=== PATIENT | male | born 1970 | race Caucasian/White ===

== ENCOUNTER 2016-11-18 07:12 | Day surgery (SDC) | payer OTHER, BC ==
[2016-11-18] MEDS ORDERED: Lactated Ringers 1,000 ML IV SCH (08:00)
[2016-11-18] MEDS ORDERED: ceFAZolin 2 GM in Premix Bag 1 BAG IV ONE (08:30)
[2016-11-18] MEDS ORDERED: Dexamethasone 4 MG/ML 5 ML MDV IVPUSH ONE (09:00)
[2016-11-18] MEDS ORDERED: fentaNYL 100 MCG/2 ML SDV IV ONE (09:00)
[2016-11-18] MEDS ORDERED: Morphine 10 MG/ML Syringe IVPUSH ONE (09:00)
[2016-11-18] MEDS ORDERED: Ondansetron 4 MG/2 ML SDV IVPUSH ONE (09:00)
[2016-11-18] MEDS ORDERED: Midazolam 1 MG/ML 2 ML SDV IV ONE (09:00)
[2016-11-18] MEDS ORDERED: Lactated Ringers 1,000 ML IV ONE (09:00)
[2016-11-18] MEDS ORDERED: Propofol 200 MG/20 ML SDV IV ONE (09:00)
[2016-11-18] MEDS ORDERED: Ketorolac 30 MG/ML SDV IVPUSH ONE (09:00)
[2016-11-18] MEDS ORDERED: Lidocaine 2% 100 MG/5 ML Syringe IVPUSH ONE (09:00)
[2016-11-18] MEDS ORDERED: Bupivacaine 0.5% 30 ML SDV INJECT ONE (09:06)
[2016-11-18] MEDS ORDERED: Lidocaine 1% with EPINEPHrine 1:100,000 20 ML MDV INJECT ONE (09:06)
--- NOTE | 2016-11-18 09:41 | PCM.OPNOTE ---
- General Post-Op/Procedure Note Date of Surgery/Procedure: 11/18/16 Operative Procedure(s): lih repair with mesh Findings: direct hernia Pre Op Diagnosis: lih Post-Op Diagnosis: Same Anesthesia Technique: General LMA, Local (6m 1 % ldio with epi/0.5% buvipicaine) Primary Surgeon: Burt Terry Anesthesia Provider: Laila Zepeda Complications: None Condition: Good Free Text/Narrative:: see dictation
[2016-11-18] MEDS ORDERED: Acetaminophen/HYDROcodone 325-5 MG Tab PO ONE (10:38)
[2016-11-18 12:21] VITALS: BP 127/75
--- NOTE | 2016-11-18 17:21 | OR ---
DATE OF OPERATION: 11/18/2016 SURGEON: Burt Terry MD PROCEDURE PERFORMED: Left inguinal hernia repair. PREOPERATIVE DIAGNOSIS: Left inguinal hernia. POSTOPERATIVE DIAGNOSIS: Left inguinal hernia. INDICATIONS FOR PROCEDURE: This is a 46-year-old white male, who was referred with a history of what turned out to be a symptomatic left inguinal hernia. He was offered and accepted repair. There was a question of whether or not he has had a previous repair to this area as well. INTRAOPERATIVE FINDINGS: A direct inguinal hernia was encountered. There was no evidence of any surgical intervention in the inguinal canal. This was repaired with a Bard mesh preshaped keyhole, size 10 x 4.5 cm, lot #[id number] with an expiration date of 08/09/2021, reorder #[id number], and 6 mL of 1:1 mixture of 1% lidocaine with epinephrine 0.5% bupivacaine was used. DESCRIPTION OF OPERATION: After an excellent LMA anesthetic was administered, the patient was prepped and draped in usual sterile manner. The area of the planned incision was infiltrated with a 1:1 mixture of 1% lidocaine with epinephrine 0.5% bupivacaine. A 6 cm incision was then made with an intercept point on the inguinal ligament approximately alf between the anterosuperior iliac spine and the symphysis pubis. Underlying subcu fat was divided using electrocautery. Superficial inferior epigastric vessels were clamped, divided, and tied with 2-0 Vicryl ties. The aponeurosis of the external oblique was exposed. This was infiltrated with more local, a coleman was made in the aponeurosis and carried out through the external ring. The cord was mobilized, and skeletonized. We did not identify any hernia. Small cord lipoma was identified. The defect was noted in the floor of the inguinal canal. The mesh was placed on the floor of the inguinal canal, and the inferior edge was tacked inferiorly from the symphysis pubis to just lateral to the internal ring. The ring itself was closed with a running 2-0 Prolene as well. SorbaFix was then used to tack the mesh to the floor of the inguinal canal. The area was irrigated and the cord was returned to normal anatomic position. The aponeurosis of the external oblique was closed with a running 3-0 Vicryl. 3-0 Vicryl was used to reapproximate Luis's fascia and hao were used to close the skin. Needle, sponge, and instrument counts were reported as correct. The patient tolerated the procedure well and was taken to recovery room in good condition. /[id number] /MODL
== END 2016-11-18 12:03 | disposition home or self-care (01) ==
LOC: FB.SDS 07:12
PROVIDERS: ATTEND Surgery
DX: K40.91 Unilateral inguinal hernia, without obstruction or gangrene, recurrent (principal); K21.9 Gastro-esophageal reflux disease without esophagitis; F32.9 Major depressive disorder, single episode, unspecified; F41.1 Generalized anxiety disorder; E66.01 Morbid (severe) obesity due to excess calories; G47.33 Obstructive sleep apnea (adult) (pediatric); Z98.52 Vasectomy status; Z90.49 Acquired absence of other specified parts of digestive tract; Z79.899 Other long term (current) drug therapy; Z88.0 Allergy status to penicillin; Z88.2 Allergy status to sulfonamides; Z98.890 Other specified postprocedural states; Z87.891 Personal history of nicotine dependence
CPT/HCPCS: 49520; A9270; C1781; J0690; J1100; J1885; J2250; J2270; J2405; J2704; J3010; J7120

== ENCOUNTER 2017-05-12 20:45 | Emergency (ER) | payer BC, OTHER ==
--- NOTE | 2017-05-12 21:57 | EDM.PDOC ---
ED HPI GENERAL MEDICAL PROBLEM - General Chief Complaint: Chest Pain Stated Complaint: HEAVY CHEST Time Seen by Provider: 05/12/17 20:45 Source of Information: Reports: Patient, Family History Limitations: Reports: No Limitations - History of Present Illness INITIAL COMMENTS - FREE TEXT/NARRATIVE: 46 years old w m with a history of anxiety, came to the ed due to substernal chest pain, radiating to his left shoulder. No N/V/D dizziness or diaphoresis. Pt had an ESS 3 years agp which was found to be neg. Pt was seen by his PMD recently and went to the clinic today. The clinic sent him to the ED for chest pain evaluation. BP 117/68 pulse 69 Temp 97.7 Onset: Today, Sudden Onset Date: 05/11/17 Onset Time: 07:00 Duration: Hour(s):, Day(s): Location: Reports: Chest Quality: Reports: Burning Severity: Mild Improves with: Reports: Rest Worsens with: Reports: Movement Associated Symptoms: Reports: No Other Symptoms chest pain Pain Score (Numeric/FACES): 0 - Related Data Allergies Allergy/AdvReac Type Severity Reaction Status Date / Time Penicillins Allergy Unknown Hives Verified 05/12/17 21:39 Sulfa (Sulfonamide Allergy Unknown Swelling Verified 05/12/17 21:39 Antibiotics) Home Meds: Home Meds Calcium Carb & Citrate/Vit D3 [Calcium + D3 ER Tablet] 1 tab PO BID 05/01/14 [ History] Cholecalciferol (Vitamin D3) [Vitamin D3] 2,000 unit PO DAILY 05/01/14 [History] Citalopram Hydrobromide [Celexa] 40 mg PO DAILY 05/01/14 [History] Ferrous Gluconate 325 mg PO DAILY 05/01/14 [History] Ibuprofen 800 mg PO Q6HR PRN 05/01/14 [History] Magnesium 400 mg PO DAILY 05/01/14 [History] Multivitamin [Multi-Vitamin Daily] 1 tab PO BID 05/01/14 [History] [place]-3 Fatty Acids [[place]-3] 1,000 mg PO DAILY 05/01/14 [History] Omeprazole 20 mg PO DAILY 05/01/14 [History] Vit B12/Lmefolate Ca/Vit B6/B2 [Metafolbic Tablet] 1 each PO DAILY 05/01/14 [ History] buPROPion [Wellbutrin XL] 300 mg PO DAILY 05/01/14 [History] Acetaminophen [Tylenol Extra Strength] 1,000 mg PO ASDIRECTED PRN 10/25/14 [ History] Testosterone Cypionate 200 mg IM ASDIRECTED 10/25/14 [History] Amitriptyline [Elavil] 50 mg PO BEDTIME 11/06/16 [History] hydrOXYzine Pamoate [Vistaril] 25 mg PO QID PRN 11/06/16 [History] Past Medical History HEENT History: Reports: Cataract Other HEENT History: HX H/A WITH MIGRAINES Cardiovascular History: Reports: None Respiratory History: Reports: Sleep Apnea Gastrointestinal History: Reports: GERD Genitourinary History: Reports: None GL ACCOUNTANT History: Reports: None Neurological History: Reports: Headaches, Chronic, Migraines Psychiatric History: Reports: Anxiety, Depression, Panic Attack Endocrine/Metabolic History: Reports: Other (See Below) Other Endocrine/Metabolic History: THYROID DISORDER, SIMPLE GOITER Hematologic History: Reports: None Immunologic History: Reports: None Oncologic (Cancer) History: Reports: None Dermatologic History: Reports: None - Past Surgical History HEENT Surgical History: Reports: Oral Surgery, Tonsillectomy GI Surgical History: Reports: Appendectomy, Bariatric Procedure, Cholecystectomy , Hernia, Inguinal, Hernia Repair/Other Social & Family History - Family History Family Medical History: Noncontributory - Tobacco Use Smoking Status *Q: Former Smoker Years of Tobacco use: 5 Used Tobacco, but Quit: Yes Month Tobacco Last Used: - Caffeine Use Caffeine Use: Reports: Soda - Alcohol Use Days Per Week of Alcohol Use: 7 Number of Drinks Per Day: 2 Total Drinks Per Week: 14 - Recreational Drug Use Recreational Drug Use: No Drug Use in Last 12 Months: No - Living Situation & Occupation Living situation: Reports: Occupation: Employed ED ROS GENERAL - Review of Systems Review Of Systems: See Below Constitutional: Reports: No Symptoms HEENT: Reports: No Symptoms Respiratory: Reports: No Symptoms Cardiovascular: Reports: No Symptoms Endocrine: Reports: No Symptoms GI/Abdominal: Reports: No Symptoms : Reports: No Symptoms Musculoskeletal: Reports: No Symptoms Skin: Reports: No Symptoms Neurological: Reports: No Symptoms Psychiatric: Reports: Anxiety Hematologic/Lymphatic: Reports: No Symptoms Immunologic: Reports: No Symptoms ED EXAM, GENERAL - Physical Exam Exam: See Below Exam Limited By: No Limitations General Appearance: Alert, WD/WN, Anxious, Mild Distress Eye Exam: Bilateral Eye: Normal Inspection Ears: Normal External Exam Ear Exam: Bilateral Ear: Auricle Normal Nose: Normal Inspection Throat/Mouth: Normal Inspection Head: Atraumatic, Normocephalic Neck: Normal Inspection Respiratory/Chest: No Respiratory Distress Cardiovascular: Normal Peripheral Pulses GI/Abdominal: Normal Bowel Sounds (Male) Exam: Deferred Rectal (Males) Exam: Deferred Back Exam: Normal Inspection Extremities: Normal Inspection Neurological: Alert, Oriented, CN II-XII Intact, Normal Cognition, Normal Gait Psychiatric: Anxious Skin Exam: Warm, Dry, Intact, Normal Color, No Rash Lymphatic: No Adenopathy EKG INTERPRETATION EKG Date: 05/12/17 Time: 21:25 Rhythm: NSR Rate (Beats/Min): 68 [place]: Normal P-Wave: Present QRS: Normal ST-T: Normal QT: Normal Comparison: NA - No Prior EKG Course - Vital Signs Text/Narrative:: 46 years old w m with a history of anxiety, came to the ed due to substernal chest pain, radiating to his left shoulder. No N/V/D dizziness or diaphoresis. Pt had an ESS 3 years agp which was found to be neg. Pt was seen by his PMD recently and went to the clinic today. The clinic sent him to the ED for chest pain evaluation. BP 117/68 pulse 69 Temp 97.7 PE: Anxious person s/o gastric bypass surgery Labs: CBC, BMP, Troponin were all nl. UDS pos for tricyclycs and Benzos D Dimer <100 Imaging: Not indicated. Impression: Atypical chest pain. Anxiety Reexam: Pt's symptoms improved while here in the ed. No meds were give here in the ed. Plan: D/C with instructions Last Recorded V/S: Last Vital Signs Temp 36.5 C 05/12/17 20:45 Pulse 71 05/12/17 20:45 Resp 15 05/12/17 22:00 BP 127/73 05/12/17 22:00 Pulse Ox 96 05/12/17 22:00 - Orders/Labs/Meds Orders: Active Orders 24 hr Category Date Time Status EKG Documentation Completion [RC] ASDIRECTED Care 05/12/17 21:16 Active EKG 12 Lead [EK] Routine Ther 05/12/17 21:15 Ordered Labs: Laboratory Tests 05/12/17 05/12/17 05/12/17 Range/Units 21:25 21:25 21:25 WBC 9.1 (4.5-12.0) X10-3/uL RBC 4.58 (4.30-5.75) x10(6)uL Hgb 14.7 (11.5-15.5) g/dL Hct 42.4 (30.0-51.3) % MCV 92.7 (80-96) fL MCH 32.0 (27.7-33.6) pg MCHC 34.6 (32.2-35.4) g/dL RDW 13.0 (11.5-15.5) % Plt Count 216 (125-369) X10(3)uL MPV 7.7 (7.4-10.4) fL Neut % (Auto) 66.8 (46-82) % Lymph % (Auto) 23.5 (13-37) % [place] % (Auto) 7.4 (4-12) % Eos % (Auto) 2 (1.0-5.0) % Baso % (Auto) 0 (0-2) % Neut # (Auto) 6.1 (1.6-8.3) # Lymph # (Auto) 2.1 (0.6-5.0) # [place] # (Auto) 0.7 (0.0-1.3) # Eos # (Auto) 0.2 (0.0-0.8) # Baso # (Auto) 0.0 (0.0-0.2) # D-Dimer, Quantitative < 100 L (100-400) ng/mL Sodium 139 (135-145) mmol/L Potassium 3.6 (3.5-5.3) mmol/L Chloride 103 (100-110) mmol/L Carbon Dioxide 28 (23-29) mmol/L BUN 14 (5-20) mg/dL Creatinine 0.9 (0.6-1.3) mg/dL Est Cr Clr Drug Dosing TNP Estimated GFR (MDRD) > 60 (>60) BUN/Creatinine Ratio 15.6 (9-20) Glucose 102 (80-116) mg/dL Calcium 8.8 (8.6-10.2) mg/dL Troponin I (0.02-0.06) NG/ML Urine Opiates Screen (NEGATIVE) Ur Oxycodone Screen (NEGATIVE) Ur Propoxyphene Screen (NEGATIVE) Ur Barbituates Screen (NEGATIVE) Ur Tricyclics Screen (NEGATIVE) Ur Phencyclidine Scrn (NEGATIVE) Ur Amphetamine Screen (NEGATIVE) Urine MDMA Screen (NEGATIVE) U Benzodiazepines Scrn (NEGATIVE) U Cocaine Metab Screen (NEGATIVE) U Marijuana (THC) Screen (NEGATIVE) Ethyl Alcohol (<0.01) % 05/12/17 05/12/17 05/12/17 Range/Units 21:25 21:25 21:38 WBC (4.5-12.0) X10-3/uL RBC (4.30-5.75) x10(6)uL Hgb (11.5-15.5) g/dL Hct (30.0-51.3) % MCV (80-96) fL MCH (27.7-33.6) pg MCHC (32.2-35.4) g/dL RDW (11.5-15.5) % Plt Count (125-369) X10(3)uL MPV (7.4-10.4) fL Neut % (Auto) (46-82) % Lymph % (Auto) (13-37) % [place] % (Auto) (4-12) % Eos % (Auto) (1.0-5.0) % Baso % (Auto) (0-2) % Neut # (Auto) (1.6-8.3) # Lymph # (Auto) (0.6-5.0) # [place] # (Auto) (0.0-1.3) # Eos # (Auto) (0.0-0.8) # Baso # (Auto) (0.0-0.2) # D-Dimer, Quantitative (100-400) ng/mL Sodium (135-145) mmol/L Potassium (3.5-5.3) mmol/L Chloride (100-110) mmol/L Carbon Dioxide (23-29) mmol/L BUN (5-20) mg/dL Creatinine (0.6-1.3) mg/dL Est Cr Clr Drug Dosing Estimated GFR (MDRD) (>60) BUN/Creatinine Ratio (9-20) Glucose (80-116) mg/dL Calcium (8.6-10.2) mg/dL Troponin I < 0.01 L (0.02-0.06) NG/ML Urine Opiates Screen Negative (NEGATIVE) Ur Oxycodone Screen Negative (NEGATIVE) Ur Propoxyphene Screen Negative (NEGATIVE) Ur Barbituates Screen Negative (NEGATIVE) Ur Tricyclics Screen Positive H (NEGATIVE) Ur Phencyclidine Scrn Negative (NEGATIVE) Ur Amphetamine Screen Negative (NEGATIVE) Urine MDMA Screen Negative (NEGATIVE) U Benzodiazepines Scrn Positive H (NEGATIVE) U Cocaine Metab Screen Negative (NEGATIVE) U Marijuana (THC) Screen Negative (NEGATIVE) Ethyl Alcohol < 0.01 (<0.01) % Departure - Departure Time of Disposition: 22:20 Disposition: Home, Self-Care 01 Condition: Good Clinical Impression: Atypical chest pain Instructions: Nonspecific Chest Pain Referrals: Jayy Shepherd MD [Primary Care Provider] - Forms: ED Department Discharge Additional Instructions: Please f/u with your PMD, please come back if your symptoms get worse acutely - My Orders Last 24 Hours: My Active Orders 05/12/17 21:15 EKG 12 Lead [EK] Routine 05/12/17 21:16 EKG Documentation Completion [RC] ASDIRECTED - Assessment/Plan Last 24 Hours: My Active Orders 05/12/17 21:15 EKG 12 Lead [EK] Routine 05/12/17 21:16 EKG Documentation Completion [RC] ASDIRECTED
[2017-05-12 22:15] VITALS: BP 127/73
== END 2017-05-12 22:25 | disposition home or self-care (01) ==
LOC: FB.ED 20:45
DX: R07.2 Precordial pain (principal); F41.0 Panic disorder [episodic paroxysmal anxiety]; K21.9 Gastro-esophageal reflux disease without esophagitis; Z87.891 Personal history of nicotine dependence; Z79.899 Other long term (current) drug therapy; Z88.0 Allergy status to penicillin; Z88.2 Allergy status to sulfonamides
CPT/HCPCS: 36415; 80048; 80305; 84484; 85025; 85379; 93005; 99285; G0480; 99284

== ENCOUNTER 2020-07-12 15:21 | Emergency (ER) | payer OTHER ==
[2020-07-12] MEDS ORDERED: Ondansetron 4 MG Tab.DIS PO ONE (15:22)
--- NOTE | 2020-07-12 15:46 | EDM.PDOC ---
ED HPI GENERAL MEDICAL PROBLEM - General Chief Complaint: Head Injury Stated Complaint: HEAD INJURY Time Seen by Provider: 07/12/20 15:38 Source of Information: Reports: Patient History Limitations: Reports: No Limitations - History of Present Illness INITIAL COMMENTS - FREE TEXT/NARRATIVE: 49-year-old male who reports that he has not been feeling well since yesterday. He reports that he feels that it is due to stress that he is having because he is having marital problems and his has asked for a divorce. He reports he was quite anxious last night related to this and left his house to go to his office where he spent the night. He had nausea last night with vomiting 1 and been nauseated with vomiting 4. He reports that he was feeling nauseated and was going to the bathroom to throw up and felt very lightheaded and apparently felt weak and collapsed, falling and hitting his head on the edge of the toilet and states that he was unconscious for at least 30 minutes. He reports this happened about 2:30 PM today. He states that he has pain in his periorbital area and he rates that pain as a 9/10. It is a sharp and throbbing type pain. He continues to have nausea. He also reports he has posterior neck pain. He does feel weak and dizzy now. He denies any chest pain or shortness of breath. No diarrhea. No fevers. He denies any suicidal or homicidal ideation and he denies doing anything to harm himself today. He is brought to the emergency department by his son via private vehicle. Apparently he awoke on the floor and then called his son for assistance. The patient was at his office alone. There are no other associated signs or symptoms. There are no other modifying factors. Onset: Other (Yesterday as above. But the syncope and head injury happened today at 2:30 PM.) Duration: Constant Location: Reports: Head, Neck Quality: Reports: Sharp Severity: Severe Improves with: Reports: None Worsens with: Reports: Other (Palpation) Context: Reports: Trauma (And as above) Associated Symptoms: Reports: Headaches, Nausea/Vomiting, Syncope, Weakness Treatments ENGAGEMENT MANAGER: Reports: Other (see below) (Nothing.) Headache Pain Score (Numeric/FACES): 10 - Related Data Allergies Allergy/AdvReac Type Severity Reaction Status Date / Time Penicillins Allergy Unknown Hives Verified 05/12/17 21:39 Sulfa (Sulfonamide Allergy Unknown Swelling Verified 05/12/17 21:39 Antibiotics) Home Meds: Home Meds Calcium Carb, Citrate/Vit D3 [Calcium + D3 ER Tablet] 1 tab PO BID 05/01/14 [History] Cholecalciferol (Vitamin D3) [Vitamin D3] 2,000 unit PO DAILY 05/01/14 [History] Citalopram Hydrobromide [Celexa] 40 mg PO DAILY 05/01/14 [History] Ferrous Gluconate 325 mg PO DAILY 05/01/14 [History] Ibuprofen 800 mg PO Q6HR PRN 05/01/14 [History] Magnesium 400 mg PO DAILY 05/01/14 [History] Multivitamin [Multi-Vitamin Daily] 1 tab PO BID 05/01/14 [History] [place]-3 Fatty Acids [[place]-3] 1,000 mg PO DAILY 05/01/14 [History] Omeprazole 20 mg PO DAILY 05/01/14 [History] Vit B12/Levomefolate/Vit B6/B2 [Metafolbic Tablet] 1 each PO DAILY 05/01/14 [History] buPROPion [Wellbutrin XL] 300 mg PO DAILY 05/01/14 [History] Acetaminophen [Tylenol Extra Strength] 1,000 mg PO ASDIRECTED PRN 10/25/14 [History] Testosterone Cypionate 200 mg IM ASDIRECTED 10/25/14 [History] Amitriptyline [Elavil] 50 mg PO BEDTIME 11/06/16 [History] hydrOXYzine Pamoate [Vistaril] 25 mg PO QID PRN 11/06/16 [History] Past Medical History HEENT History: Reports: Cataract Other HEENT History: HX H/A WITH MIGRAINES Respiratory History: Reports: Sleep Apnea Gastrointestinal History: Reports: GERD Neurological History: Reports: Headaches, Chronic, Migraines Psychiatric History: Reports: Anxiety, Depression, Panic Attack Endocrine/Metabolic History: Reports: Other (See Below) Other Endocrine/Metabolic History: THYROID DISORDER, SIMPLE GOITER - Past Surgical History HEENT Surgical History: Reports: Oral Surgery ([place] teeth extraction), Tonsillectomy GI Surgical History: Reports: Appendectomy, Bariatric Procedure (Gastric bypass surgery), Cholecystectomy, Hernia, Inguinal, Hernia Repair/Other Musculoskeletal Surgical History: Reports: Carpal Tunnel (Bilateral, multiple times) Social & Family History - Tobacco Use Tobacco Use Status *Q: Unknown Ever Used Tobacco (Nonsmoker.) - Caffeine Use Caffeine Use: Reports: Soda - Alcohol Use Alcohol Use History: No - Living Situation & Occupation Living situation: Reports: 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 Denies: Diarrhea : Reports: No Symptoms Musculoskeletal: Reports: Neck Pain Skin: Reports: Wound (Abrasions on right lateral orbital area) Neurological: Reports: Dizziness, Headache Psychiatric: Reports: Anxiety Hematologic/Lymphatic: Reports: No Symptoms Immunologic: Reports: Other (Last tetanus immunization was a few years ago according to the patient. So he is up-to-date.) ED EXAM, HEAD INJURY - Physical Exam Exam: See Below Exam Limited By: No Limitations General Appearance: WD/WN, Moderate Distress, Other (Somewhat subdued and slow to respond. He does answer questions appropriately though.) Head: Facial Abrasions, Facial Ecchymosis, Facial Swelling, Facial Tenderness Nexus Criteria: Posterior, Midline Cervical Tenderness, Altered Level of Consciousness (Mild as above.) Eyes: Bilateral Eye: EOMI, Normal Inspection, PERRL Ears: Normal External Exam, Hearing Grossly Normal Nose: Normal Inspection, Normal Mucousa, No Blood Throat/Mouth: Normal Inspection, Normal Lips, Normal Oropharynx, Normal Voice, No Airway Compromise Neck: Tender Lateral, Tender Midline Respiratory: No Respiratory Distress, Lungs Clear, Normal Breath Sounds, No Accessory Muscle Use, Chest Non-Tender Cardiovascular: Normal Peripheral Pulses, Regular Rate, Rhythm, No Murmur GI/Abdominal Exam: Normal Bowel Sounds, Soft, Non-Tender, No Mass Back Exam: Normal Inspection, Full Range of Motion Extremities: Normal Inspection, Normal Range of Motion, Non-Tender, No Pedal Edema, Normal Capillary Refill Neurologic: it trainee II-XII nml As Tested, No Motor/Sensory Deficits, Oriented x 3, Depressed Affect, Other (Slow to respond.) Skin: Normal Color, Warm/Dry - [place] Coma Score Best Eye Response ([place]): (3) Open to Voice Best Verbal Response ([place]): (5) Oriented Best Motor Response (Elizabet): (6) Obeys Commands [place] Total: 14 #1 Interpretation EKG Date: 07/12/20 Time: 15:23 Rhythm: NSR Rate (Beats/Min): 79 [place]: Normal P-Wave: Present QRS: Normal ST-T: Normal QT: Normal Comparison: No Change (No change from EKG performed on 05/12/2017.) Course - Vital Signs Last Recorded V/S: Last Vital Signs Temp 36.6 C 07/12/20 15:25 Pulse 86 07/12/20 15:25 Resp 18 07/12/20 15:25 BP 137/69 07/12/20 15:25 Pulse Ox 98 07/12/20 15:25 - Orders/Labs/Meds Orders: Active Orders 24 hr Category Date Time Status EKG Documentation Completion [RC] ASDIRECTED Care 07/12/20 15:57 Active Cervical Spine wo Cont [CT] Stat Exams 07/12/20 15:55 Ordered Head wo Cont [CT] Stat Exams 07/12/20 15:55 Ordered Max Facial Sinus wo Cont [CT] Stat Exams 07/12/20 15:55 Ordered Sodium Chloride 0.9% [Saline Flush] Med 07/12/20 15:55 Active 10 ml FLUSH ASDIRECTED PRN Peripheral IV Insertion Adult [OM.PC] Routine Oth 07/12/20 15:55 Ordered EKG 12 Lead [EK] Routine Ther 07/12/20 15:55 Ordered Medication Orders Sodium Chloride (Saline Flush) 10 ml FLUSH ASDIRECTED PRN PRN Reason: Keep Vein Open Labs: Laboratory Tests 07/12/20 07/12/20 07/12/20 Range/Units 16:15 16:15 16:15 WBC 7.6 (3.2-10.1) x10-3/uL RBC 4.62 (3.90-5.90) x10(6)uL Hgb 14.0 (12.9-17.7) g/dL Hct 43.3 (38.3-50.1) % MCV 93.8 (80.8-98.7) fL MCH 30.2 (27.0-33.3) pg MCHC 32.2 (28.7-35.3) g/dL RDW 13.8 (12.4-15.0) % Plt Count 230 (117-477) x10(3)uL MPV 7.8 (6.7-11.0) fL Neut % (Auto) 74.1 H (40.3-71.8) % Lymph % (Auto) 16.9 (15.8-45.3) % [place] % (Auto) 8.1 (5.5-15.2) % Eos % (Auto) 0.5 (0.1-6.8) % Baso % (Auto) 0.4 (0.3-3.8) % Neut # (Auto) 5.6 (1.7-6.9) x10-3/uL Lymph # (Auto) 1.3 (0.5-4.5) x10-3/uL [place] # (Auto) 0.6 (0.0-1.2) x10-3/uL Eos # (Auto) 0.0 (0.0-0.6) x10-3/uL Baso # (Auto) 0.0 (0.0-0.3) x10-3/uL Sodium 141 (135-145) mmol/L Potassium 3.9 (3.5-5.3) mmol/L Chloride 103 (100-110) mmol/L Carbon Dioxide 31 (21-32) mmol/L BUN 15 (7-18) mg/dL Creatinine 1.0 (0.70-1.30) mg/dL Est Cr Clr Drug Dosing TNP Estimated GFR (MDRD) > 60 (>60) BUN/Creatinine Ratio 15.0 (9-20) Glucose 114 (80-116) mg/dL Calcium 8.7 (8.6-10.2) mg/dL Magnesium 2.0 (1.8-2.5) mg/dL Total Bilirubin 0.6 (0.1-1.3) mg/dL AST 51 H (5-25) IU/L ALT 64 H (12-36) U/L Alkaline Phosphatase 90 (56-112) IU/L Troponin I 5.1 (4.0-60.3) pg/mL Total Protein 6.8 (6.0-8.0) g/dL Albumin 3.8 (3.5-5.2) g/dL Globulin 3.0 g/dL Albumin/Globulin Ratio 1.3 Salicylates < 2.8 L (<2.8) mg/dL Acetaminophen < 2 L (<2) ug/mL Ethyl Alcohol < 0.03 (<0.03) % Meds: Medications Generic Name Dose Route Start Last Admin Trade Name Freq PRN Reason Stop Dose Admin Sodium Chloride 10 ml 07/12/20 15:55 Saline Flush FLUSH ASDIRECTED PRN Keep Vein Open Discontinued Medications Generic Name Dose Route Start Last Admin Trade Name Freq PRN Reason Stop Dose Admin Diphenhydramine HCl 25 mg 07/12/20 15:58 07/12/20 16:13 Benadryl IVPUSH 07/12/20 15:59 25 mg ONETIME ONE Administration Prochlorperazine Edisylate 10 52 mls @ 150 mls/hr 07/12/20 15:58 07/12/20 16:13 mg/ Sodium Chloride IV 07/12/20 16:18 150 mls/hr ONETIME ONE Administration Sodium Chloride 1,000 mls @ 999 mls/hr 07/12/20 15:58 07/12/20 16:09 Normal Saline IV 07/12/20 16:58 999 mls/hr .BOLUS ONE Administration Ketorolac Tromethamine 30 mg 07/12/20 17:42 07/12/20 17:50 Toradol IVPUSH 07/12/20 17:43 30 mg ONETIME ONE Administration - Radiology Interpretation Free Text/Narrative:: CT scan of head shows no fracture or bleeding per the radiologist. CT scan of face shows soft tissue swelling over the right periorbital area with no evidence of fracture. There is evidence of chronic maxillary sinus disease. This was per the radiologist. CT scan of cervical spine shows degenerative disease but no sign of acute osseous injury. This was per the radiologist. - Re-Assessments/Exams Free Text/Narrative Re-Assessment/Exam: 07/12/20 17:15: The patient is sleeping. He awakens easily and is verbally responsive. He appears to be less slow to answer. His headache is now down to 5/10. His nausea has resolved. I am waiting the results of his CT scans. The blood tests are all reassuringly normal. 07/12/20 17:40: CT scans of 's head, face and cervical spine show no fracture or bleeding. He still has a 5/10 level of headache and I will give him Toradol 30 mg IV. We will then ambulate the patient and if he is doing well with this, we will discharge the patient. He appears to have a mild concussion. Of the cause of his syncope and vomiting but it appears to be possibly anxiety or stress related. I do not see anything more serious at this point. I discussed all of this with the patient's son who was in the room with the patient and I also discussed it with the patient. He is in agreement with the plan for treatment and discharge. 07/12/20 18:08: Patient ambulated well. He had urine output. His headache is now down to 2/10. No more nausea. Discharged as discussed above. Departure - Departure Time of Disposition: 18:15 Disposition: Home, Self-Care 01 Condition: Good Clinical Impression: Concussion with less than 1 hour loss of consciousness, Anxiety and depression Adjustment disorder Qualifiers: Adjustment disorder type: with mixed anxiety and depressed mood Qualified Code(s): F43.23 - Adjustment disorder with mixed anxiety and depressed mood Facial contusion Qualifiers: Encounter type: initial encounter Qualified Code(s): S00.83XA - Contusion of other part of head, initial encounter Facial abrasion Qualifiers: Encounter type: initial encounter Qualified Code(s): S00.81XA - Abrasion of other part of head, initial encounter - Discharge Information Instructions: Facial or Scalp Contusion, [id number], Concussion, Adult, [id number], Adjustment Disorder, Adult, Managing Anxiety, Adult, Abrasion, [id number] Referrals: Agustin Lino MD [Primary Care Provider] - Forms: ED Department Discharge Additional Instructions: Your blood tests were all reassuringly normal. Your EKG was normal. The CT scans of your head, face and neck showed no fractures and no bleeding. You do appear to have a mild concussion associated with this fall and head injury. You should increase your fluid intake. I have given you a take home pack of Zofran that you may use for any nausea that you have. You should follow-up with your primary provider or seek some counseling for your anxiety and depression. Back to the emergency department for marked increase in headache, unrelenting vomiting, worsening weakness, any thoughts of wanting to harm your self or others or any other concerning sign or symptom. Sepsis Event Note (ED) - Focused Exam Vital Signs: Vital Signs Temp Pulse Resp BP Pulse Ox 07/12/20 15:25 36.6 C 86 18 137/69 98 - My Orders Last 24 Hours: My Active Orders 07/12/20 15:55 Cervical Spine wo Cont [CT] Stat Head wo Cont [CT] Stat Max Facial Sinus wo Cont [CT] Stat Sodium Chloride 0.9% [Saline Flush] 10 ml FLUSH ASDIRECTED PRN Peripheral IV Insertion Adult [OM.PC] Routine EKG 12 Lead [EK] Routine 07/12/20 15:57 EKG Documentation Completion [RC] ASDIRECTED - Assessment/Plan Last 24 Hours: My Active Orders 07/12/20 15:55 Cervical Spine wo Cont [CT] Stat Head wo Cont [CT] Stat Max Facial Sinus wo Cont [CT] Stat Sodium Chloride 0.9% [Saline Flush] 10 ml FLUSH ASDIRECTED PRN Peripheral IV Insertion Adult [OM.PC] Routine EKG 12 Lead [EK] Routine 07/12/20 15:57 EKG Documentation Completion [RC] ASDIRECTED
[2020-07-12 15:59] VITALS: BP 137/69; PULSE 86
[2020-07-12] MEDS: Sodium Chloride 0.9% 1,000 ML IV ONE (16:09)
[2020-07-12] MEDS: diphenhydrAMINE 50 MG/ML SDV IVPUSH ONE (16:13)
[2020-07-12] MEDS: Prochlorperazine 10 MG in Sodium Chloride 0.9% 50 ML IV ONE (16:13)
[2020-07-12 16:52] LABS: ACETAMINOPHEN < 2 ug/mL (<2)
[2020-07-12] MEDS: Sodium Chloride 0.9% 10 ML Syringe FLUSH PRN (17:20)
[2020-07-12] MEDS: Ketorolac 30 MG/ML SDV IVPUSH ONE (17:50)
== END 2020-07-12 18:30 | disposition home or self-care (01) ==
LOC: FB.ED 15:21
DX: S06.0X9A Concussion with loss of consciousness of unspecified duration, initial encounter (principal); S00.83XA Contusion of other part of head, initial encounter; F41.9 Anxiety disorder, unspecified; F32.9 Major depressive disorder, single episode, unspecified; F43.23 Adjustment disorder with mixed anxiety and depressed mood; K21.9 Gastro-esophageal reflux disease without esophagitis; Z88.0 Allergy status to penicillin; Z88.2 Allergy status to sulfonamides; Z79.899 Other long term (current) drug therapy; W18.11XA Fall from or off toilet without subsequent striking against object, initial encounter
CPT/HCPCS: 36415; 70450; 70486; 72125; 80053; 80307; 83735; 84484; 85025; 93005; 96365; 96375; 99284; J0780; J1200; J1885; J7030; A9270-GY

== ENCOUNTER 2021-02-20 06:35 | Emergency (ER) | payer OTHER ==
--- NOTE | 2021-02-20 07:23 | EDM.PDOC ---
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 work has h/o anxiety, took ASA x 4 and clonazepam x 2 altho he said it did not help as he "wanted ot know what was causing his sxs" no prvious CVD, no seen cardiology, used to smoked "when I went out," not know SH: single, lives alone, EKG neg states he still is anxious and numb and tingle in RUE, no sob/cp now has had COVID vax 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 Bilateral Chest Pain Score (Numeric/FACES): 6 - Related Data Allergies Allergy/AdvReac Type Severity Reaction Status Date / Time Penicillins Allergy Unknown Hives Verified 05/12/17 21:39 Sulfa (Sulfonamide Allergy Unknown Swelling Verified 05/12/17 21:39 Antibiotics) Home Meds: Home Meds Calcium Carb, Citrate/Vit D3 [Calcium + D3 ER Tablet] 1 tab PO BID 05/01/14 [History] Cholecalciferol (Vitamin D3) [Vitamin D3] 2,000 unit PO DAILY 05/01/14 [History] Ferrous Gluconate 325 mg PO DAILY 05/01/14 [History] Ibuprofen 800 mg PO Q6HR PRN 05/01/14 [History] Magnesium 400 mg PO DAILY 05/01/14 [History] Multivitamin [Multi-Vitamin Daily] 1 tab PO BID 05/01/14 [History] [place]-3 Fatty Acids [[place]-3] 1,000 mg PO DAILY 05/01/14 [History] Omeprazole 20 mg PO DAILY 05/01/14 [History] Vit B12/Levomefolate/Vit B6/B2 [Metafolbic Tablet] 1 each PO DAILY 05/01/14 [History] Acetaminophen [Tylenol Extra Strength] 1,000 mg PO ASDIRECTED PRN 10/25/14 [History] Testosterone Cypionate 200 mg IM ASDIRECTED 10/25/14 [History] ClonazePAM [KlonoPIN] 0.5 mg PO BID PRN 02/20/21 [History] DULoxetine [Cymbalta] 90 mg PO DAILY 02/20/21 [History] traZODone 100 mg PO BEDTIME PRN 02/20/21 [History] Past Medical History HEENT History: Reports: Cataract Other HEENT History: HX H/A WITH MIGRAINES Cardiovascular History: Reports: None Respiratory History: Reports: Sleep Apnea Gastrointestinal History: Reports: GERD Genitourinary History: Reports: None NSH TEACHER History: Reports: None Neurological History: Reports: Headaches, Chronic, Migraines Psychiatric History: Reports: Anxiety, Depression, Panic Attack Endocrine/Metabolic History: Reports: Other (See Below) Other Endocrine/Metabolic History: THYROID DISORDER, SIMPLE GOITER Hematologic History: Reports: None Immunologic History: Reports: None Oncologic (Cancer) History: Reports: None Dermatologic History: Reports: None - Past Surgical History Head Surgeries/Procedures: Reports: None HEENT Surgical History: Reports: Oral Surgery, Tonsillectomy GI Surgical History: Reports: Appendectomy, Bariatric Procedure, Cholecystectomy, Hernia, Inguinal, Hernia Repair/Other Other GI Surgeries/Procedures: Gastric bypass Male Surgical History: Reports: Vasectomy Musculoskeletal Surgical History: Reports: Carpal Tunnel Social & Family History - Family History Family Medical History: No Pertinent Family History - Tobacco Use Tobacco Use Status *Q: Never Tobacco User - Caffeine Use Caffeine Use: Reports: None - Alcohol Use Days Per Week of Alcohol Use: 3 Number of Drinks Per Day: 6 Total Drinks Per Week: 18 - Recreational Drug Use Recreational Drug Use: No - Living Situation & Occupation Living situation: Reports: 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 Denies: Pleuritic Chest Pain, Cough Cardiovascular: Reports: Chest Pain Endocrine: Reports: No Symptoms GI/Abdominal: Reports: No Symptoms : Reports: No Symptoms Musculoskeletal: Reports: No Symptoms Skin: Reports: No Symptoms Neurological: Reports: No Symptoms Psychiatric: Reports: No Symptoms Hematologic/Lymphatic: Reports: No Symptoms Immunologic: Reports: No Symptoms ED EXAM, CPR - Physical Exam Exam: See Below Limited By: No Limitations General Appearance: Alert, WD/WN, Anxious Eye Exam: Bilateral Eye: Normal Inspection Nose: Normal Inspection Throat/Mouth: Normal Inspection, Normal Lips, Normal Teeth, Normal Voice, No Airway Compromise Head: Atraumatic, Normocephalic Neck: No: Lymphadenopathy (R), Lymphadenopathy (L) Respiratory Chest: No Respiratory Distress, Lungs Clear, Normal Breath Sounds, No Accessory Muscle Use, Chest Non-Tender Cardiovascular: Regular Rate, Rhythm, No Gallop, No JVD, No Murmur GI/Abdominal Exam: Non-Tender, No Distention Extremities: Normal Inspection, Normal Range of Motion, Non-Tender, No Pedal Edema Skin Exam: Warm, Dry, Intact, Normal Color, No Rash Comments: quite anxious, no localized findings #1 Interpretation EKG Date: 02/20/21 Time: 06:43 Rhythm: NSR Rate (Beats/Min): 76 [place]: Normal P-Wave: Present QRS: Normal ST-T: Normal QT: Normal Comparison: No Change EKG Interpretation Comments: wnl, no acute/ST/ischemic changes, no change c/w 07-01-20 Course - Vital Signs Last Recorded V/S: Last Vital Signs Temp 37.1 C 02/20/21 06:35 Pulse 80 02/20/21 07:07 Resp 15 02/20/21 07:07 BP 154/95 H 02/20/21 07:07 Pulse Ox 98 02/20/21 07:07 - Orders/Labs/Meds Labs: Laboratory Tests 02/20/21 02/20/21 02/20/21 Range/Units 07:25 07:25 07:25 WBC 5.3 (3.2-10.1) x10-3/uL RBC 4.37 (3.90-5.90) x10(6)uL Hgb 14.0 (12.9-17.7) g/dL Hct 42.6 (38.3-50.1) % MCV 97.3 (80.8-98.7) fL MCH 32.0 (27.0-33.3) pg MCHC 32.9 (28.7-35.3) g/dL RDW 13.2 (12.4-15.0) % Plt Count 190 (117-477) x10(3)uL MPV 7.1 (6.7-11.0) fL Neut % (Auto) 54.7 (40.3-71.8) % Lymph % (Auto) 32.5 (15.8-45.3) % [place] % (Auto) 9.6 (5.5-15.2) % Eos % (Auto) 2.2 (0.1-6.8) % Baso % (Auto) 1.0 (0.3-3.8) % Neut # (Auto) 2.9 (1.7-6.9) x10-3/uL Lymph # (Auto) 1.7 (0.5-4.5) x10-3/uL [place] # (Auto) 0.5 (0.0-1.2) x10-3/uL Eos # (Auto) 0.1 (0.0-0.6) x10-3/uL Baso # (Auto) 0.1 (0.0-0.3) x10-3/uL D-Dimer, Quantitative 0.21 (0.0-0.59) mg/LFEU Sodium 143 (135-145) mmol/L Potassium 3.8 (3.5-5.3) mmol/L Chloride 103 (100-110) mmol/L Carbon Dioxide 30 (21-32) mmol/L BUN 17 (7-18) mg/dL Creatinine 0.9 (0.70-1.30) mg/dL Est Cr Clr Drug Dosing TNP Estimated GFR (MDRD) > 60 (>60) BUN/Creatinine Ratio 18.9 (9-20) Glucose 96 (80-116) mg/dL Calcium 8.7 (8.6-10.2) mg/dL Total Bilirubin 0.3 (0.1-1.3) mg/dL AST 19 D (5-25) IU/L ALT 53 H D (12-36) U/L Alkaline Phosphatase 96 (56-112) IU/L Troponin I (4.0-60.3) pg/mL Total Protein 7.4 (6.0-8.0) g/dL Albumin 3.6 (3.5-5.2) g/dL Globulin 3.8 g/dL Albumin/Globulin Ratio 1.0 08// Range/Units 07:25 WBC (3.2-10.1) x10-3/uL RBC (3.90-5.90) x10(6)uL Hgb (12.9-17.7) g/dL Hct (38.3-50.1) % MCV (80.8-98.7) fL MCH (27.0-33.3) pg MCHC (28.7-35.3) g/dL RDW (12.4-15.0) % Plt Count (117-477) x10(3)uL MPV (6.7-11.0) fL Neut % (Auto) (40.3-71.8) % Lymph % (Auto) (15.8-45.3) % [place] % (Auto) (5.5-15.2) % Eos % (Auto) (0.1-6.8) % Baso % (Auto) (0.3-3.8) % Neut # (Auto) (1.7-6.9) x10-3/uL Lymph # (Auto) (0.5-4.5) x10-3/uL [place] # (Auto) (0.0-1.2) x10-3/uL Eos # (Auto) (0.0-0.6) x10-3/uL Baso # (Auto) (0.0-0.3) x10-3/uL D-Dimer, Quantitative (0.0-0.59) mg/LFEU Sodium (135-145) mmol/L Potassium (3.5-5.3) mmol/L Chloride (100-110) mmol/L Carbon Dioxide (21-32) mmol/L BUN (7-18) mg/dL Creatinine (0.70-1.30) mg/dL Est Cr Clr Drug Dosing Estimated GFR (MDRD) (>60) BUN/Creatinine Ratio (9-20) Glucose (80-116) mg/dL Calcium (8.6-10.2) mg/dL Total Bilirubin (0.1-1.3) mg/dL AST (5-25) IU/L ALT (12-36) U/L Alkaline Phosphatase (56-112) IU/L Troponin I 8.4 (4.0-60.3) pg/mL Total Protein (6.0-8.0) g/dL Albumin (3.5-5.2) g/dL Globulin g/dL Albumin/Globulin Ratio - Re-Assessments/Exams Free Text/Narrative Re-Assessment/Exam: 02/20/21 08:39 labs and EKG neg, d/w pt pt reports he drank more last year, which account for his improved LFTs pt states he takes trazodone 100 mg qhs prn, puts him right to sleep, no daytime somnolence, does get palpitations at as he falls to sleep, which may be d/t his prn use, gets palpitations even with 1/2 tab (50 mg) says he is the process of getting a divorce limits caffeine, had a gastric bypass, down from 270 lbs, now stays around 210 lbs Departure - Departure Time of Disposition: 08:35 Disposition: Home, Self-Care 01 Condition: Good Clinical Impression: Anxiety - Discharge Information *PRESCRIPTION DRUG MONITORING PROGRAM REVIEWED*: Not Applicable *COPY OF PRESCRIPTION DRUG MONITORING REPORT IN PATIENT JOHANNY: Not Applicable Instructions: Nonspecific Chest Pain, Adult, [id number], Managing Anxiety, Adult Forms: ED Department Discharge Additional Instructions: Your tests are within normal limits. May continue usual activities. See your doctor this week for further recommendations. Sepsis Event Note (ED) - Evaluation Sepsis Screening Result: No Definite Risk - Focused Exam Vital Signs: Vital Signs Temp Pulse Resp BP Pulse Ox 02/20/21 07:07 80 15 154/95 H 98 02/20/21 06:35 37.1 C 85 18 142/87 H
[2021-02-20 09:21] VITALS: BP 125/89; PULSE 72
== END 2021-02-20 08:45 | disposition home or self-care (01) ==
LOC: FB.ED 06:35
DX: F41.9 Anxiety disorder, unspecified (principal); K21.9 Gastro-esophageal reflux disease without esophagitis; Z79.899 Other long term (current) drug therapy; Z88.0 Allergy status to penicillin; Z88.2 Allergy status to sulfonamides
CPT/HCPCS: 36415; 80053; 84484; 85025; 85379; 93005; 99285-25

== ENCOUNTER 2021-02-24 17:30 | Emergency (ER) | payer SELFPAY ==
[2021-02-24 20:32] VITALS: BP 114/75; PULSE 84
== END 2021-02-24 19:05 | disposition left against medical advice (07) ==
LOC: FB.ED 17:30
DX: R47.81 Slurred speech (principal); Z53.21 Procedure and treatment not carried out due to patient leaving prior to being seen by health care provider